=== PATIENT | male | born 1950 | race Caucasian/White ===

== ENCOUNTER 2016-11-11 08:32 | Day surgery (SDC) | payer MEDICARE ==
[~2016-11-11 08:32] MED LIST: IV START KIT ONE; LACTATED RINGERS 1,000 ML IV SCH; LACTATED RINGERS 1,000 ML ONE
[2016-11-11] MEDS ORDERED: PROPOFOL 20 ML IV ONE ×2 (08:53→09:20)
--- NOTE | 2016-11-13 13:05 | SURGPATH ---
[facility] [address] [place] [id number] Patient Name: TARUN CRISTINA MR#: [id number] : 1950 Gender: M Specimen #: [id number] Collected: 11/11/2016 Received: 11/12/2016 Reported: 11/13/2016 Submitting Phys: BRINA STERN Copy To Phys: [facility] GAYATRI BERRY Clinical History / Pre-Operative Diagnosis: Crohn's disease; history of colon polyps; rectal bleeding; diarrhea; rule out ileitis and colitis Specimen Source / Surgical Procedure Performed: #1-terminal ileum biopsy; #2-cecal biopsy; #3-sigmoid biopsy at 30 cm Interpretation: 1. TERMINAL ILEUM BIOPSY: - NO SIGNIFICANT PATHOLOGIC ABNORMALITIES IDENTIFIED. 2. CECAL BIOPSY: - NO SIGNIFICANT PATHOLOGIC ABNORMALITIES IDENTIFIED. 3. SIGMOID COLON BIOPSY AT 30 CM: - FOCAL, MINIMAL ACTIVE COLITIS (SEE MICROSCOPIC DESCRIPTION). Electronically Signed Out Laina Bear M.D. Gross Description: #1 The specimen is received in a formalin filled container labeled with the patient's name and "terminal ileum biopsy". A single le-sawant biopsy is 0.4 cm. Totally embedded in cassette #1. #2 The specimen is received in a formalin filled container labeled with the patient's name and "cecal biopsy". Four le biopsies are 0.2-0.4 cm. Totally embedded in cassette #2. #3 The specimen is received in a formalin filled container labeled with the patient's name and "sigmoid biopsy at 30 cm". Three le biopsies are 0.2, 0.3 and 0.5 cm. Totally embedded in cassette #3. Mraian Servin Microscopic Description: 1. Sections of the terminal ileum biopsy show a fragment of benign small bowel mucosa with no significant pathologic changes. 2. Sections of the cecal biopsy show fragments of benign colonic mucosa with no significant pathologic changes. 3. Sections of the sigmoid colon biopsy at 30 cm show fragments of benign colonic mucosa with generally straight and parallel crypts. The lamina propria is slightly hypercellular. In one area, small numbers of neutrophils are noted within the lamina propria and encroaching upon the crypt epithelium. No crypt abscesses are seen. No granulomas are identified. There is no evidence of dysplasia or malignancy. 1: 47206 2: 14208 3: 30826 K52.9
== END 2016-11-11 10:13 | disposition home or self-care (01) ==
LOC: SDC 08:32
PROVIDERS: ATTEND Internal Medicine Gastroenterology
PROC: 0DBH8ZX Excision of Cecum, Via Natural or Artificial Opening Endoscopic, Diagnostic (ICD-10-PCS; principal; 2016-11-11)
PROC: 0DBN8ZX Excision of Sigmoid Colon, Via Natural or Artificial Opening Endoscopic, Diagnostic (ICD-10-PCS; 2016-11-11)
PROC: 0DBB8ZX Excision of Ileum, Via Natural or Artificial Opening Endoscopic, Diagnostic (ICD-10-PCS; 2016-11-11)
DX: Z12.11 Encounter for screening for malignant neoplasm of colon (principal); K64.2 Third degree hemorrhoids; K52.9 Noninfective gastroenteritis and colitis, unspecified; K57.30 Diverticulosis of large intestine without perforation or abscess without bleeding; Z86.010 Personal history of colon polyps; I12.9 Hypertensive chronic kidney disease with stage 1 through stage 4 chronic kidney disease, or unspecified chronic kidney disease; N18.9 Chronic kidney disease, unspecified; Z87.891 Personal history of nicotine dependence; J44.9 Chronic obstructive pulmonary disease, unspecified; F32.9 Major depressive disorder, single episode, unspecified; Z86.73 Personal history of transient ischemic attack (TIA), and cerebral infarction without residual deficits; Z88.5 Allergy status to narcotic agent
CPT/HCPCS: 45380; J7120